=== PATIENT | male | born 1980 | race Caucasian/White ===

== ENCOUNTER 2019-08-16 10:00 | Emergency (ER) | payer MEDICAID, SELFPAY ==
[~2019-08-16] VITALS: Ht 182.9 cm; Wt 99.8 kg
[~2019-08-16 10:00] MED LIST: ACET-8386 PO; DOCU-299 PO
[2019-08-16 10:12] VITALS: BP 129/82
[2019-08-16 11:21] VITALS: BP 129/82
== END 2019-08-16 11:21 | disposition home or self-care (01) ==
LOC: MED 10:00 → EEVIPCON 10:00 → MED 11:21
DX: U07.1 COVID-19 (principal); R05 Cough; Z90.49 Acquired absence of other specified parts of digestive tract
CPT/HCPCS: 99283